=== PATIENT | female | born 1960 | race Caucasian/White ===

== ENCOUNTER 2023-07-30 07:45 | Inpatient (IN) | payer OTHER ==
[~2023-07-30] VITALS: Ht 152.4 cm; Wt 54.9 kg
[~2023-07-30 07:45] MED LIST: COLACE100 M1 PO; FAMOTIDINE40 MG PO; FLUTICASONE PRO16 GM IH; HYDROCODON-ACE1 EA12 PO; ITRACONAZOLE100 MG PO; LEVOFLOXACIN250 MG PO; LOSARTAN-HCTZ1 EACH PO; MIRALAX17 GM PO; ONDANSETRON ODT4 MG PO
[2023-07-30] MEDS ORDERED: ONDANSETRON HCL INJ 2MG/ML 2ML 2 MG/ML VIAL IV STA (07:54)
[2023-07-30] MEDS ORDERED: FENTANYL CITRATE/PF 100MCG/2 ML INJ IV ONE (08:00)
[2023-07-30 08:20] LABS: BASOPHILS # (AUTO) 0.1 (0.0-0.1); BASOPHILS % 0.8 % (0.0-1.0); EOSINOPHILS # (AUTO) 0.2 (0.0-0.4); EOSINOPHILS % 1.7 % (0.0-6.0); HEMOGLOBIN 11.4 g/dL (12.0-16.0); LYMPHOCYTES # (AUTO) 1.8 (1.0-3.2); LYMPHOCYTES % 12.6 % (18.0-39.1); MEAN CORPUSCULAR HEMOGLOBIN 30.3 pg (28-32); MEAN CORPUSCULAR HGB CONC 33.5 g/dL (31-35); MEAN CORPUSCULAR VOLUME 90.4 fL (81-99); MONOCYTES # (AUTO) 1.2 (0.2-0.8); MONOCYTES % 8.7 % (4.4-11.3); NEUTROPHILS # (AUTO) 10.5 (2.1-6.9); NEUTROPHILS % 75.8 % (38.7-80.0); PLATELET COUNT 598 x10e3/uL (140-360); RED BLOOD COUNT 3.76 x10e6/uL (3.6-5.1); RED CELL DISTRIBUTION WIDTH 13.6 % (11.7-14.4); WHITE BLOOD COUNT 13.85 x10e3/uL (4.8-10.8)
[2023-07-30 09:07] LABS: ALANINE AMINOTRANSFERASE 14 IU/L (0-55); ALKALINE PHOSPHATASE 205 IU/L (40-150); ANION GAP 19.9 mmol/L (8-16); BLOOD UREA NITROGEN 34 mg/dL (7-26); BUN/CREATININE RATIO 23 (6-25); CALCIUM 10.7 mg/dL (8.4-10.2); CARBON DIOXIDE 22 mmol/L (22-29); CHLORIDE 101 mmol/L (98-107); CREATINE KINASE 69 IU/L (29-168); CREATININE, SERUM 1.47 mg/dL (0.57-1.11); LIPASE 51 U/L (8-78); POTASSIUM 4.9 mmol/L (3.5-5.1); SODIUM 138 mmol/L (136-145)
[2023-07-30] MEDS ORDERED: LACTATED RINGER'S 1,000 ML IV ONE (09:30)
[2023-07-30 09:42] LABS: CLARITY,URINE CLOUDY (CLEAR); COLOR,URINE YELLOW (YELLOW); KETONES,URINE 1+ (NEGATIVE); LEUKOCYTE ESTERASE ,URINE NEGATIVE (NEGATIVE); NITRITE,URINE NEGATIVE (NEGATIVE); PROTEIN,URINE DIPSTICK 2+ (NEGATIVE); URINE UROBILINOGEN 0.2 mg/dL (0.2 - 1)
[2023-07-30 10:00] LABS: BACTERIA,URINE MODERATE /HPF; EPITHELIAL CELLS,URINE MODERATE /LPF
[2023-07-30 10:01] LABS: HYALINE CASTS 0-1 (0-1)
[2023-07-30] MEDS ORDERED: IOPAMIDOL 370 MG/ML 100 ML INFUS..BTL INJ ONE (10:17)
[2023-07-30] MEDS: LACTATED RINGER'S 1,000 ML INJ SCH ×2 (11:30→18:44)
[2023-07-30] MEDS: ONDANSETRON HCL INJ 2MG/ML 2ML 2 MG/ML VIAL IV PRN ×3 (11:55→20:22)
[2023-07-30] MEDS: Morphine 4mg INJECTION 4 MG/ML INJ IV PRN ×2 (11:56→16:18)
[2023-07-30 13:30] VITALS: BP 121/76; PULSE 70; RESP 18; TEMP 98.1; O2SAT 96
[2023-07-30 14:19] VITALS: BP 121/86; PULSE 70; RESP 18; TEMP 98.1; O2SAT 96
[2023-07-30 14:29] VITALS: BP 121/86; PULSE 70; RESP 18; TEMP 98.1; O2SAT 96
[2023-07-30 16:06] VITALS: BP 135/69; PULSE 66; RESP 18; TEMP 98.5; O2SAT 99
[2023-07-30] MEDS: LEVOFLOXACIN 500MG/D5W 100ML 100 ML IV SCH (16:17)
[2023-07-30 20:00] VITALS: BP 119/77; PULSE 63; RESP 18; TEMP 98.5; O2SAT 98
[2023-07-31] VITALS (8 sets, daily range): BP systolic 132–156; BP diastolic 72–98; PULSE 63–70; RESP 18–20; TEMP 98.2–98.7; O2SAT 97–99
[2023-07-31] MEDS: ONDANSETRON HCL INJ 2MG/ML 2ML 2 MG/ML VIAL IV PRN ×5 (02:10→22:53)
[2023-07-31] MEDS: LACTATED RINGER'S 1,000 ML INJ SCH ×4 (02:28→22:54)
[2023-07-31] MEDS: Morphine 4mg INJECTION 4 MG/ML INJ IV PRN ×5 (02:29→22:54)
[2023-07-31 05:00] LABS: BASOPHILS # (AUTO) 0.1 (0.0-0.1); BASOPHILS % 0.8 % (0.0-1.0); EOSINOPHILS # (AUTO) 0.3 (0.0-0.4); EOSINOPHILS % 2.6 % (0.0-6.0); HEMATOCRIT 28.5 % (34.2-44.1); HEMOGLOBIN 9.6 g/dL (12.0-16.0); LYMPHOCYTES # (AUTO) 1.4 (1.0-3.2); LYMPHOCYTES % 13.6 % (18.0-39.1); MEAN CORPUSCULAR HEMOGLOBIN 30.4 pg (28-32); MEAN CORPUSCULAR HGB CONC 33.7 g/dL (31-35); MEAN CORPUSCULAR VOLUME 90.2 fL (81-99); MONOCYTES # (AUTO) 1.1 (0.2-0.8); MONOCYTES % 10.4 % (4.4-11.3); NEUTROPHILS # (AUTO) 7.3 (2.1-6.9); PLATELET COUNT 445 x10e3/uL (140-360); RED BLOOD COUNT 3.16 x10e6/uL (3.6-5.1); RED CELL DISTRIBUTION WIDTH 13.3 % (11.7-14.4); WHITE BLOOD COUNT 10.18 x10e3/uL (4.8-10.8)
[2023-07-31 05:18] LABS: ANION GAP 15.9 mmol/L (8-16); CALCIUM 10.1 mg/dL (8.4-10.2); CREATININE, SERUM 1.13 mg/dL (0.57-1.11); POTASSIUM 4.9 mmol/L (3.5-5.1)
[2023-07-31] MEDS ORDERED: SODIUM CHLORIDE 0.9% 250ML 250 ML ONE (14:50)
[2023-07-31] MEDS: LEVOFLOXACIN 500MG/D5W 100ML 100 ML IV SCH (14:53)
[2023-08-01] VITALS (9 sets, daily range): BP systolic 135–160; BP diastolic 69–77; PULSE 62–67; RESP 17–19; TEMP 98.4–99.2; O2SAT 98–100
[2023-08-01] MEDS: ONDANSETRON HCL INJ 2MG/ML 2ML 2 MG/ML VIAL IV PRN ×5 (04:14→23:12)
[2023-08-01] MEDS: Morphine 4mg INJECTION 4 MG/ML INJ IV PRN ×5 (04:16→23:12)
[2023-08-01] MEDS: LACTATED RINGER'S 1,000 ML INJ SCH ×2 (04:16→18:21)
[2023-08-01 04:54] LABS: BASOPHILS # (AUTO) 0.1 (0.0-0.1); BASOPHILS % 0.6 % (0.0-1.0); EOSINOPHILS # (AUTO) 0.3 (0.0-0.4); EOSINOPHILS % 2.6 % (0.0-6.0); HEMATOCRIT 28.9 % (34.2-44.1); HEMOGLOBIN 9.6 g/dL (12.0-16.0); LYMPHOCYTES # (AUTO) 1.4 (1.0-3.2); LYMPHOCYTES % 14.1 % (18.0-39.1); MEAN CORPUSCULAR HEMOGLOBIN 30.2 pg (28-32); MEAN CORPUSCULAR HGB CONC 33.2 g/dL (31-35); MEAN CORPUSCULAR VOLUME 90.9 fL (81-99); MONOCYTES # (AUTO) 1.1 (0.2-0.8); MONOCYTES % 11.2 % (4.4-11.3); NEUTROPHILS % 70.9 % (38.7-80.0); PLATELET COUNT 437 x10e3/uL (140-360); RED BLOOD COUNT 3.18 x10e6/uL (3.6-5.1); RED CELL DISTRIBUTION WIDTH 13.2 % (11.7-14.4); WHITE BLOOD COUNT 9.91 x10e3/uL (4.8-10.8)
[2023-08-01 05:15] LABS: ALBUMIN 2.9 g/dL (3.5-5.0); ALBUMIN/GLOBULIN RATIO 0.8 (0.8-2.0); ANION GAP 16.6 mmol/L (8-16); CALCIUM 10.1 mg/dL (8.4-10.2); CREATININE, SERUM 0.91 mg/dL (0.57-1.11); POTASSIUM 4.6 mmol/L (3.5-5.1)
[2023-08-01] MEDS: LEVOFLOXACIN 500MG/D5W 100ML 100 ML IV SCH (15:33)
[2023-08-02] VITALS (7 sets, daily range): BP systolic 146–163; BP diastolic 70–85; PULSE 59–66; RESP 16–20; TEMP 98.4–99; O2SAT 98–100
[2023-08-02] MEDS: LACTATED RINGER'S 1,000 ML INJ SCH ×3 (02:36→21:06)
[2023-08-02] MEDS: Morphine 4mg INJECTION 4 MG/ML INJ IV PRN ×5 (03:35→21:05)
[2023-08-02] MEDS: ONDANSETRON HCL INJ 2MG/ML 2ML 2 MG/ML VIAL IV PRN ×5 (03:36→21:05)
[2023-08-02] MEDS: LEVOFLOXACIN 500MG/D5W 100ML 100 ML IV SCH (16:24)
[2023-08-03] VITALS (8 sets, daily range): BP systolic 136–163; BP diastolic 65–87; PULSE 53–63; RESP 17–20; TEMP 97.9–99; O2SAT 98–100
[2023-08-03] MEDS: Morphine 4mg INJECTION 4 MG/ML INJ IV PRN ×5 (02:15→19:57)
[2023-08-03] MEDS: ONDANSETRON HCL INJ 2MG/ML 2ML 2 MG/ML VIAL IV PRN ×4 (02:15→14:58)
[2023-08-03 05:06] LABS: BASOPHILS # (AUTO) 0.1 (0.0-0.1); BASOPHILS % 0.5 % (0.0-1.0); EOSINOPHILS # (AUTO) 0.2 (0.0-0.4); EOSINOPHILS % 2.4 % (0.0-6.0); HEMATOCRIT 27.8 % (34.2-44.1); HEMOGLOBIN 9.3 g/dL (12.0-16.0); LYMPHOCYTES # (AUTO) 1.1 (1.0-3.2); LYMPHOCYTES % 11.5 % (18.0-39.1); MEAN CORPUSCULAR HEMOGLOBIN 30.1 pg (28-32); MEAN CORPUSCULAR HGB CONC 33.5 g/dL (31-35); MONOCYTES % 10.9 % (4.4-11.3); NEUTROPHILS % 73.7 % (38.7-80.0); PLATELET COUNT 366 x10e3/uL (140-360); RED BLOOD COUNT 3.09 x10e6/uL (3.6-5.1); RED CELL DISTRIBUTION WIDTH 13.2 % (11.7-14.4); WHITE BLOOD COUNT 9.45 x10e3/uL (4.8-10.8)
[2023-08-03 05:43] LABS: ALBUMIN 2.7 g/dL (3.5-5.0); ALBUMIN/GLOBULIN RATIO 0.8 (0.8-2.0); ANION GAP 13.3 mmol/L (8-16); CALCIUM 9.9 mg/dL (8.4-10.2); CREATININE, SERUM 0.87 mg/dL (0.57-1.11); MAGNESIUM 1.8 MG/DL (1.3-2.1); POTASSIUM 4.3 mmol/L (3.5-5.1)
[2023-08-03] MEDS ORDERED: SODIUM PHOSPHATE 15 MMOL in SODIUM CHLORIDE 0.9% 250ML 250 ML INJ ONE (08:00)
[2023-08-03] MEDS: ENOXAPARIN SOD INJ 40 MG/0.4 ML SYR SC SCH (10:45)
[2023-08-03] MEDS: LACTATED RINGER'S 1,000 ML INJ SCH ×3 (15:07→19:56)
[2023-08-03] MEDS: PROMETHAZINE 12.5MG/ NACL 0.9% 12.5 MG/50 ML BAG IV PRN (19:56)
[2023-08-04] VITALS (7 sets, daily range): BP systolic 132–157; BP diastolic 63–74; PULSE 53–87; RESP 18–20; TEMP 98.1–99.8; O2SAT 94–98
[2023-08-04] MEDS: PROMETHAZINE 12.5MG/ NACL 0.9% 12.5 MG/50 ML BAG IV PRN ×3 (01:19→20:42)
[2023-08-04] MEDS: Morphine 4mg INJECTION 4 MG/ML INJ IV PRN ×4 (01:20→13:35)
[2023-08-04 04:57] LABS: BASOPHILS # (AUTO) 0.1 (0.0-0.1); BASOPHILS % 0.6 % (0.0-1.0); EOSINOPHILS # (AUTO) 0.3 (0.0-0.4); EOSINOPHILS % 3.2 % (0.0-6.0); HEMATOCRIT 26.9 % (34.2-44.1); LYMPHOCYTES # (AUTO) 1.3 (1.0-3.2); LYMPHOCYTES % 15.2 % (18.0-39.1); MEAN CORPUSCULAR HEMOGLOBIN 30.1 pg (28-32); MEAN CORPUSCULAR HGB CONC 33.5 g/dL (31-35); MONOCYTES % 11.1 % (4.4-11.3); NEUTROPHILS # (AUTO) 6.1 (2.1-6.9); NEUTROPHILS % 68.9 % (38.7-80.0); PLATELET COUNT 351 x10e3/uL (140-360); RED BLOOD COUNT 2.99 x10e6/uL (3.6-5.1); RED CELL DISTRIBUTION WIDTH 13.5 % (11.7-14.4); WHITE BLOOD COUNT 8.81 x10e3/uL (4.8-10.8)
[2023-08-04] MEDS: DOCUSATE SODIUM 100 MG CAP PO SCH ×2 (09:00→17:00)
[2023-08-04] MEDS: POLYETHYLENE GLYCOL 3350 17 GM PACK PO SCH ×2 (09:00→17:00)
[2023-08-04] MEDS: ENOXAPARIN SOD INJ 40 MG/0.4 ML SYR SC SCH (09:00)
[2023-08-04] MEDS: LACTATED RINGER'S 1,000 ML INJ SCH ×3 (09:31→17:39)
[2023-08-04] MEDS: ONDANSETRON HCL INJ 2MG/ML 2ML 2 MG/ML VIAL IV PRN ×2 (09:36→13:31)
[2023-08-04] MEDS ORDERED: SODIUM CHLORIDE 0.9% 500ML 500 ML ONE (14:04)
[2023-08-04] MEDS ORDERED: BUPIVACAINE 0.25% 30ML SDV ONE (14:04)
[2023-08-04] MEDS ORDERED: HEPARIN SOD (PORCINE) 5,000 UNIT/ML VIAL ONE (14:04)
[2023-08-04] MEDS ORDERED: MIDAZOLAM HCL 2 MG/2 ML VIAL ONE (14:05)
[2023-08-04] MEDS ORDERED: FENTANYL CITRATE/PF 100MCG/2 ML INJ ONE (14:05)
[2023-08-04] MEDS ORDERED: LEVOFLOXACIN 500MG/D5W 100ML 100 ML IV ONE (14:54)
[2023-08-04] MEDS ORDERED: HYDROCODONE/APAP 7.5MG-325MG 1 EA TAB PO PRN (15:45)
[2023-08-04] MEDS ORDERED: HYDROMORPHONE 1MG/1ML INJ IV ONE (15:50)
[2023-08-04] MEDS ORDERED: HYDROMORPHONE 1MG/1ML INJ ONE (15:54)
[2023-08-04] MEDS ORDERED: OXYCODONE HCL 10 MG TAB CR PO SCH (18:00)
[2023-08-04] MEDS: HYDROCODONE/APAP 10MG-325MG TAB PO PRN (20:38)
[2023-08-05] VITALS (8 sets, daily range): BP systolic 133–147; BP diastolic 59–76; PULSE 51–63; RESP 17–18; TEMP 97.8–98.8; O2SAT 96–98
[2023-08-05] MEDS: LACTATED RINGER'S 1,000 ML INJ SCH ×4 (06:06→20:54)
[2023-08-05] MEDS ORDERED: OXYCODONE HCL 10 MG TAB CR PO SCH (06:30)
[2023-08-05] MEDS: DOCUSATE SODIUM 100 MG CAP PO SCH ×2 (09:00→16:30)
[2023-08-05] MEDS: POLYETHYLENE GLYCOL 3350 17 GM PACK PO SCH ×2 (09:00→16:30)
[2023-08-05] MEDS: ENOXAPARIN SOD INJ 40 MG/0.4 ML SYR SC SCH (09:30)
[2023-08-05] MEDS: HYDROCODONE/APAP 10MG-325MG TAB PO PRN (09:35)
[2023-08-05] MEDS ORDERED: SENNA-S TABLET PO PRN (10:30)
[2023-08-05] MEDS: BISACODYL 10 MG SUPP PR SCH (12:38)
[2023-08-05] MEDS ORDERED: LIDOCAINE HCL 2% LOCAL INJ 5 ML SDV VIAL INJ ONE (13:01)
[2023-08-05] MEDS ORDERED: PROPOFOL IV EMULSION 10 MG/ML 20 ML VIAL ONE (13:01)
[2023-08-05] MEDS ORDERED: ROCURONIUM BROMIDE 10 MG/ML 5ML VIAL IV ONE (13:01)
[2023-08-05] MEDS ORDERED: SEVOFLURANE INHAL SOLN 250 ML PEN BTL ONE (13:01)
[2023-08-05] MEDS ORDERED: DEXAMETHASONE SOD PHOS INJ 4 MG/ML SDV ONE (13:01)
[2023-08-05] MEDS ORDERED: EPHEDRINE SULFATE INJ 50 MG/ML VIAL ONE (13:01)
[2023-08-05] MEDS ORDERED: NEOSTIGMINE 1 MG/ML 10ML VIAL ONE (13:01)
[2023-08-05] MEDS ORDERED: ONDANSETRON HCL INJ 2MG/ML 2ML 2 MG/ML VIAL ONE (13:01)
[2023-08-05] MEDS ORDERED: GLYCOPYRROLATE INJ 0.2 MG/ML VIAL ONE (13:01)
[2023-08-05] MEDS: OXYCODONE HCL IR 5 MG TAB PO PRN (16:29)
[2023-08-05] MEDS: OXYCODONE HCL 10 MG TAB CR PO SCH (21:40)
[2023-08-06] VITALS (8 sets, daily range): BP systolic 112–164; BP diastolic 64–85; PULSE 63–82; RESP 18–20; TEMP 98.3–102; O2SAT 97–98
[2023-08-06] MEDS: ONDANSETRON HCL INJ 2MG/ML 2ML 2 MG/ML VIAL IV PRN ×2 (04:18→08:56)
[2023-08-06] MEDS: OXYCODONE HCL IR 5 MG TAB PO PRN ×2 (04:26→13:45)
[2023-08-06] MEDS: LACTATED RINGER'S 1,000 ML INJ SCH ×2 (04:59→20:39)
[2023-08-06] MEDS: DOCUSATE SODIUM 100 MG CAP PO SCH ×2 (08:51→17:00)
[2023-08-06] MEDS: POLYETHYLENE GLYCOL 3350 17 GM PACK PO SCH ×2 (08:51→17:00)
[2023-08-06] MEDS: BISACODYL 10 MG SUPP PR SCH (08:51)
[2023-08-06] MEDS: OXYCODONE HCL 10 MG TAB CR PO SCH ×2 (08:52→20:32)
[2023-08-06] MEDS: ENOXAPARIN SOD INJ 40 MG/0.4 ML SYR SC SCH (08:52)
[2023-08-06] MEDS ORDERED: ACETAMINOPHEN 325 MG TAB PO ONE (11:45)
[2023-08-06] MEDS: ACETAMINOPHEN 325 MG TAB PO PRN (20:32)
[2023-08-07] VITALS (7 sets, daily range): BP systolic 143–156; BP diastolic 66–91; PULSE 56–68; RESP 18–20; TEMP 99.2–100.7; O2SAT 95–98
[2023-08-07] MEDS: LACTATED RINGER'S 1,000 ML INJ SCH ×2 (04:07→16:06)
[2023-08-07] MEDS: ONDANSETRON HCL INJ 2MG/ML 2ML 2 MG/ML VIAL IV PRN ×2 (04:07→11:02)
[2023-08-07] MEDS: OXYCODONE HCL IR 5 MG TAB PO PRN (04:07)
[2023-08-07] MEDS: ACETAMINOPHEN 325 MG TAB PO PRN ×2 (04:08→16:07)
[2023-08-07] MEDS: POLYETHYLENE GLYCOL 3350 17 GM PACK PO SCH ×2 (08:39→16:00)
[2023-08-07] MEDS: DOCUSATE SODIUM 100 MG CAP PO SCH ×2 (08:39→16:00)
[2023-08-07] MEDS: OXYCODONE HCL 10 MG TAB CR PO SCH ×2 (08:40→20:30)
[2023-08-07] MEDS: BISACODYL 10 MG SUPP PR SCH (08:40)
[2023-08-07] MEDS: ENOXAPARIN SOD INJ 40 MG/0.4 ML SYR SC SCH (08:40)
[2023-08-07] MEDS ORDERED: SODIUM PHOSPHATE 15 MMOL in SODIUM CHLORIDE 0.9% 250ML 250 ML INJ ONE (10:30)
[2023-08-07] MEDS: HYDROCODONE/APAP 10MG-325MG TAB PO PRN (16:12)
[2023-08-08] VITALS: BP 146/82; PULSE 62; RESP 18; TEMP 99.5; O2SAT 95
[2023-08-08 04:00] VITALS: BP 152/79; PULSE 68; RESP 18; TEMP 99.1; O2SAT 93
[2023-08-08] MEDS: HYDROCODONE/APAP 10MG-325MG TAB PO PRN ×5 (04:24→21:17)
[2023-08-08] MEDS: LACTATED RINGER'S 1,000 ML INJ SCH ×4 (04:33→18:04)
[2023-08-08 08:21] VITALS: BP 147/63; PULSE 64; RESP 20; TEMP 99.2; O2SAT 96
[2023-08-08] MEDS: DOCUSATE SODIUM 100 MG CAP PO SCH ×2 (09:00→17:00)
[2023-08-08] MEDS: POLYETHYLENE GLYCOL 3350 17 GM PACK PO SCH ×2 (09:00→17:00)
[2023-08-08] MEDS: BISACODYL 10 MG SUPP PR SCH (09:00)
[2023-08-08] MEDS ORDERED: FLUTICASONE PROPIONATE NASAL SPRAY NS PRN (09:15)
[2023-08-08 09:28] VITALS: BP 147/63; PULSE 64; RESP 20; TEMP 99.2; O2SAT 96
[2023-08-08] MEDS: OXYCODONE HCL 10 MG TAB CR PO SCH ×2 (09:54→21:14)
[2023-08-08] MEDS: ENOXAPARIN SOD INJ 40 MG/0.4 ML SYR SC SCH (09:54)
[2023-08-08 12:00] VITALS: BP 134/88; PULSE 69; RESP 18; TEMP 99.6; O2SAT 97
[2023-08-08] MEDS ORDERED: HEPARIN 500 UNITS/5ML MDV INJ PRN (13:30)
[2023-08-08] MEDS: Doxycycline IV 100 MG in SODIUM CHLORIDE 0.9% 100 ML IV SCH (17:04)
[2023-08-08 17:07] LABS: BASOPHILS % 0.4 % (0.0-1.0); EOSINOPHILS # (AUTO) 0.3 (0.0-0.4); EOSINOPHILS % 2.8 % (0.0-6.0); HEMATOCRIT 24.2 % (34.2-44.1); HEMOGLOBIN 7.9 g/dL (12.0-16.0); LYMPHOCYTES # (AUTO) 1.5 (1.0-3.2); LYMPHOCYTES % 14.4 % (18.0-39.1); MEAN CORPUSCULAR HGB CONC 32.6 g/dL (31-35); MONOCYTES # (AUTO) 1.5 (0.2-0.8); MONOCYTES % 14.2 % (4.4-11.3); NEUTROPHILS # (AUTO) 6.9 (2.1-6.9); NEUTROPHILS % 65.7 % (38.7-80.0); PLATELET COUNT 324 x10e3/uL (140-360); RED BLOOD COUNT 2.63 x10e6/uL (3.6-5.1); RED CELL DISTRIBUTION WIDTH 14.5 % (11.7-14.4); WHITE BLOOD COUNT 10.45 x10e3/uL (4.8-10.8)
[2023-08-08 17:28] LABS: ALBUMIN 2.3 g/dL (3.5-5.0); ALBUMIN/GLOBULIN RATIO 0.7 (0.8-2.0); ANION GAP 11.5 mmol/L (8-16); CALCIUM 8.6 mg/dL (8.4-10.2); CREATININE, SERUM 0.79 mg/dL (0.57-1.11); MAGNESIUM 1.7 MG/DL (1.3-2.1); PHOSPHORUS 1.4 MG/DL (2.3-4.7); POTASSIUM 3.5 mmol/L (3.5-5.1)
[2023-08-08] MEDS ORDERED: POTASSIUM PHOSPHATE 30 MM in SODIUM CHLORIDE 0.9% 250ML 250 ML IV ONE (17:45)
[2023-08-08] MEDS ORDERED: MAGNESIUM SULF 1GRAM/DEXTROSE 100 ML IV ONE (17:45)
[2023-08-08 21:15] VITALS: BP 133/60; PULSE 74; RESP 18; TEMP 99.1; O2SAT 96
[2023-08-09] MEDS: Doxycycline IV 100 MG in SODIUM CHLORIDE 0.9% 100 ML IV SCH (02:12)
[2023-08-09] MEDS: LACTATED RINGER'S 1,000 ML INJ SCH ×2 (02:12→10:12)
[2023-08-09] MEDS: HYDROCODONE/APAP 10MG-325MG TAB PO PRN ×4 (02:13→14:50)
[2023-08-09 04:56] LABS: BASOPHILS # (AUTO) 0.1 (0.0-0.1); BASOPHILS % 0.5 % (0.0-1.0); EOSINOPHILS # (AUTO) 0.3 (0.0-0.4); EOSINOPHILS % 2.8 % (0.0-6.0); HEMATOCRIT 23.8 % (34.2-44.1); HEMOGLOBIN 7.6 g/dL (12.0-16.0); LYMPHOCYTES # (AUTO) 1.4 (1.0-3.2); MEAN CORPUSCULAR HEMOGLOBIN 29.7 pg (28-32); MEAN CORPUSCULAR HGB CONC 31.9 g/dL (31-35); MONOCYTES # (AUTO) 1.5 (0.2-0.8); MONOCYTES % 14.5 % (4.4-11.3); NEUTROPHILS # (AUTO) 6.8 (2.1-6.9); NEUTROPHILS % 66.1 % (38.7-80.0); PLATELET COUNT 296 x10e3/uL (140-360); RED BLOOD COUNT 2.56 x10e6/uL (3.6-5.1); RED CELL DISTRIBUTION WIDTH 14.6 % (11.7-14.4); WHITE BLOOD COUNT 10.27 x10e3/uL (4.8-10.8)
[2023-08-09 05:12] LABS: ALBUMIN 2.2 g/dL (3.5-5.0); ALBUMIN/GLOBULIN RATIO 0.8 (0.8-2.0); ANION GAP 10.8 mmol/L (8-16); CALCIUM 8.7 mg/dL (8.4-10.2); CREATININE, SERUM 0.8 mg/dL (0.57-1.11); MAGNESIUM 1.9 MG/DL (1.3-2.1); PHOSPHORUS 1.5 MG/DL (2.3-4.7); POTASSIUM 3.8 mmol/L (3.5-5.1)
[2023-08-09 05:21] VITALS: BP 146/85; PULSE 65; RESP 18; TEMP 98.2; O2SAT 100
[2023-08-09] MEDS ORDERED: MIRALAX17 GM PO ×2 (06:05→11:19)
[2023-08-09] MEDS ORDERED: HYDROCODON-ACE1 EAC9 PO (06:05)
[2023-08-09] MEDS ORDERED: ACETAMINOPHEN325 M1 PO ×2 (06:05→11:19)
[2023-08-09] MEDS ORDERED: DOCUSATE SODIU100 MG PO ×2 (06:05→11:19)
[2023-08-09] MEDS ORDERED: Oxycodone Hcl PO (06:05)
[2023-08-09] MEDS ORDERED: DOXYCYCLINE HY100 MG PO ×2 (06:05→11:19)
[2023-08-09] MEDS ORDERED: SENNA S TABLET1 EACH PO ×2 (06:05→11:19)
[2023-08-09] MEDS ORDERED: POTASSIUM PHOSPHATE 30 MM in SODIUM CHLORIDE 0.9% 250ML 250 ML IV ONE (07:45)
[2023-08-09 08:00] VITALS: BP 145/63; PULSE 70; RESP 19; TEMP 98.6; O2SAT 97
[2023-08-09] MEDS: BISACODYL 10 MG SUPP PR SCH (08:12)
[2023-08-09] MEDS: POLYETHYLENE GLYCOL 3350 17 GM PACK PO SCH (08:12)
[2023-08-09] MEDS: OXYCODONE HCL 10 MG TAB CR PO SCH (08:13)
[2023-08-09] MEDS: ONDANSETRON HCL INJ 2MG/ML 2ML 2 MG/ML VIAL IV PRN (08:13)
[2023-08-09] MEDS: ENOXAPARIN SOD INJ 40 MG/0.4 ML SYR SC SCH (08:14)
[2023-08-09] MEDS: DOCUSATE SODIUM 100 MG CAP PO SCH (08:14)
[2023-08-09 08:35] VITALS: BP 145/63; PULSE 70; RESP 19; TEMP 98.6; O2SAT 97
[2023-08-09 12:00] VITALS: BP 143/65; PULSE 77; RESP 20; TEMP 98.6; O2SAT 100
[2023-08-09] MEDS ORDERED: ONDANSETRON ODT4 MG PO (12:13)
[2023-08-09] MEDS ORDERED: DOXYCYCLINE HYCLATE TABLET 100 MG TAB PO SCH (14:00)
[2023-08-09] MEDS ORDERED: PANTOPRAZOLE SOD 40 MG TABEC PO SCH (21:00)
== END 2023-08-09 15:15 | disposition home or self-care (01) | DRG 829 ==
LOC: ER 07:57 → ERHOLD 11:00 → MED/SURG 13:17 → OBSVTOIN 08-02 08:16 → INTOOBSV 08-02 08:17
PROVIDERS: ADMIT Internal Medicine; ATTEND Internal Medicine
PROC: 0JH60WZ Insertion of Totally Implantable Vascular Access Device into Chest Subcutaneous Tissue and Fascia, Open Approach (ICD-10-PCS; 2023-08-04)
PROC: 02HV33Z Insertion of Infusion Device into Superior Vena Cava, Percutaneous Approach (ICD-10-PCS; principal; 2023-08-04 14:29)
PROC: 05H933Z Insertion of Infusion Device into Right Brachial Vein, Percutaneous Approach (ICD-10-PCS; 2023-08-08)
DX: C7A.8 Other malignant neuroendocrine tumors (principal); J18.9 Pneumonia, unspecified organism; N17.9 Acute kidney failure, unspecified; J98.11 Atelectasis; C7B.8 Other secondary neuroendocrine tumors; N18.30 Chronic kidney disease, stage 3 unspecified; R11.2 Nausea with vomiting, unspecified; D64.9 Anemia, unspecified; K59.03 Drug induced constipation; T40.2X5A Adverse effect of other opioids, initial encounter; Y92.9 Unspecified place or not applicable; E83.39 Other disorders of phosphorus metabolism; I12.9 Hypertensive chronic kidney disease with stage 1 through stage 4 chronic kidney disease, or unspecified chronic kidney disease; K21.9 Gastro-esophageal reflux disease without esophagitis; E83.42 Hypomagnesemia; F17.200 Nicotine dependence, unspecified, uncomplicated; Z90.49 Acquired absence of other specified parts of digestive tract; Z88.0 Allergy status to penicillin; Z79.899 Other long term (current) drug therapy
CPT/HCPCS: 36415; 36568; 71046; 74177; 74240; 76000; 80048; 80053; 81001; 82550; 82570; 82607; 82728; 82746; 83497; 83540; 83690; 83735; 84100; 84260; 84466; 84484; 85025; 85045; 87086; 93005; 94760; 99284; C1751; G0378; J0696; J1100; J1170; J1644; J1650; J1956; J2001; J2250; J2270; J2405; J2550; J2710; J3475; J7040; J7050; Q9967; U0002